=== PATIENT | female | born 1955 | race African-American/Black ===

== ENCOUNTER 2019-11-04 13:19 | Inpatient (IN) | payer MEDICARE ==
[~2019-11-04] VITALS: Ht 157.5 cm; Wt 78.5 kg
[2019-11-04 14:24] LABS: BASOPHILS % 0.8 % (0.0-2.0); EOSINOPHILS % 0.2 % (0.0-5.0); HEMATOCRIT. 42.3 % (36.0-48.0); HEMOGLOBIN. 13.9 g/dL (12.0-16.0); LYMPHOCYTES % 16.4 % (20.0-50.0); MEAN CORPUSCULAR HEMOGLOBIN 27.7 pg (28.0-32.0); MEAN CORPUSCULAR VOLUME 84.1 fL (81.0-99.0); MEAN PLATELET VOLUME 10.2 fl (7.4-10.4); MONOCYTES % 3.2 % (2.0-8.0); NEUTROPHILS % 79.4 % (40.0-76.0); PLATELET 214 x1000/uL (130-400); RED BLOOD CELL COUNT 5.03 mill/uL (4.2-5.4); RED CELL DISTRIBUTION WIDTH 14.4 % (11.6-14.6)
[2019-11-04 14:32] LABS: CHLORIDE 106 mEq/L (98-107)
[2019-11-04] MEDS ORDERED: ONDANSETRON HCL 4MG/2ML INJ IV STA (14:36)
[2019-11-04] MEDS ORDERED: MECLIZINE 25MG TABLET PO ONE (14:45)
[2019-11-04 16:04] LABS: INR 0.9; PARTIAL THROMBOPLASTIN TIME 26.8 sec (23.4-31.0); PROTHROMBIN TIME 10.2 sec (9.6-11.0)
[2019-11-04 16:05] LABS: ETHANOL BLOOD < 10 mg/dL
[2019-11-04] MEDS ORDERED: CLONIDINE 0.1MG TABLET PO PRN (18:15)
[2019-11-04] MEDS ORDERED: GUAIFENESIN 200MG/10ML SUGAR FREE UDC PO PRN (18:15)
[2019-11-04] MEDS ORDERED: ONDANSETRON HCL 4MG/2ML INJ IV PRN (18:15)
[2019-11-04] MEDS ORDERED: MAGNESIUM/ALUMINUM HYDROXIDE/SIMETHICONE 30ML UDC PO PRN (18:15)
[2019-11-04] MEDS ORDERED: MECLIZINE 25MG TABLET PO PRN (18:15)
[2019-11-04] MEDS ORDERED: HYDROCODONE/ACETAMINOPHEN 5/325MG TABLET PO PRN (18:15)
[2019-11-04] MEDS ORDERED: DOCUSATE SODIUM 100MG CAPSULE PO PRN (18:15)
[2019-11-04 19:21] VITALS: BP 141/87
[2019-11-04 20:00] VITALS: BP 145/84
[2019-11-04] MEDS: ACETAMINOPHEN 325MG TABLET PO PRN (20:36)
[2019-11-04 22:00] LABS: CLARITY URINE CLOUDY (CLEAR); COLOR URINE YELLOW (YELLOW); KETONES URINE NEGATIVE (NEGATIVE); LEUKOCYTE ESTERASE URINE TRACE (NEGATIVE); NITRITE URINE NEGATIVE (NEGATIVE); OCCULT BLOOD URINE NEGATIVE (NEGATIVE); PH URINE 6.5 (4.5-8.0); PROTEIN URINE NEGATIVE (NEGATIVE); SPECIFIC GRAVITY URINE 1.018 (1.005-1.030); UROBILINOGEN URINE 0.2 E.U./dL (0.2-1.0)
[2019-11-04 22:09] LABS: *AMPHETAMINES SCREEN URINE NEGATIVE (NEGATIVE); *BARBITURATES SCREEN URINE NEGATIVE (NEGATIVE)
[2019-11-04 22:10] LABS: *BENZODIAZEPINES SCREEN URINE NEGATIVE (NEGATIVE); *COCAINE SCREEN URINE NEGATIVE (NEGATIVE); CANNABINOID URINE SCREEN NEGATIVE (NEGATIVE); METHADONE URINE SCREEN NEGATIVE (NEGATIVE); OPIATES URINE SCREEN NEGATIVE (NEGATIVE); PHENCYCLIDINE URINE SCREEN NEGATIVE (NEGATIVE)
[2019-11-04 22:20] VITALS: BP 145/84
[2019-11-04] MEDS ORDERED: LISI-604 PO (22:37)
[2019-11-04] MEDS ORDERED: DEXTROSE 50% WATER 50ML SYRINGE IV PRN (23:45)
[2019-11-04] MEDS: SODIUM CHLORIDE 0.45% 1,000 ML IV SCH (23:58)
[2019-11-05] VITALS: BP 138/74
[2019-11-05 04:00] VITALS: BP 132/64
[2019-11-05] MEDS: BLOOD SUGAR DIAGNOSTIC STRIP TEST SCH ×2 (06:48→12:07)
[2019-11-05] MEDS: INSULIN LISPRO 100 UNITS/ML SUBCUT SCH ×2 (06:48→12:15)
[2019-11-05 06:52] LABS: BASOPHILS % 0.6 % (0.0-2.0); EOSINOPHILS % 1.6 % (0.0-5.0); HEMATOCRIT. 39.8 % (36.0-48.0); HEMOGLOBIN. 13.2 g/dL (12.0-16.0); LYMPHOCYTES % 21.8 % (20.0-50.0); MEAN CORPUSCULAR HEMOGLOBIN 27.7 pg (28.0-32.0); MEAN CORPUSCULAR VOLUME 83.8 fL (81.0-99.0); MONOCYTES % 8.7 % (2.0-8.0); NEUTROPHILS % 67.3 % (40.0-76.0); PLATELET 208 x1000/uL (130-400); RED BLOOD CELL COUNT 4.75 mill/uL (4.2-5.4); RED CELL DISTRIBUTION WIDTH 14.5 % (11.6-14.6)
[2019-11-05 07:37] LABS: CHLORIDE 105 mEq/L (98-107)
[2019-11-05 07:51] LABS: CREATINE KINASE 209 IU/L (26-192)
[2019-11-05 08:00] VITALS: BP 144/77
[2019-11-05] MEDS: SODIUM CHLORIDE 0.45% 1,000 ML IV SCH (09:50)
[2019-11-05 12:00] VITALS: BP 129/84
[2019-11-05] MEDS: ACETAMINOPHEN 325MG TABLET PO PRN (12:07)
[2019-11-05 16:29] VITALS: BP 129/84
== END 2019-11-05 17:50 | disposition home or self-care (01) | DRG 149 ==
LOC: ER 13:42 → 5WST 16:34 → EDBEDREQ 16:39 → EDBEDREQTM 16:39 → ENRESERV 16:46
PROVIDERS: ADMIT Hospitalist; ATTEND Hospitalist
DX: R42 Dizziness and giddiness (principal); I10 Essential (primary) hypertension; E11.9 Type 2 diabetes mellitus without complications; Z90.710 Acquired absence of both cervix and uterus; Z90.49 Acquired absence of other specified parts of digestive tract
CPT/HCPCS: 36415; 71045; 80053; 80305; 80320; 81003; 82550; 82962; 83036; 83880; 84484; 85025; 93005; 93970; 97162; 99285; J2405; J8597; G0480